=== PATIENT | male | born 1985 | race Two or more races ===

== ENCOUNTER → 2024-11-29 | Outpatient (CLI) | payer BC, SELFPAY ==
--- NOTE | 2024-11-29 16:32 | XR_ITS ---
Examination: Abdomen AP single view Technique: AP portable supine abdomen, single view Exam date and time: November 29, 2024 1658 hours INDICATIONS: Left-sided abdominal pain beginning 2 weeks ago. FINDINGS: Moderate to large amount stool in the right colon No obstruction No free air No renal or ureteral calculi IMPRESSION: Moderate to large amount stool in the right colon
== END | disposition home or self-care (01) ==
PROVIDERS: PCP Internal Medicine; Referring Provider Specialist; Visit Provider Specialist
DX: R10.13 Epigastric pain (principal); R14.0 Abdominal distension (gaseous)
CPT/HCPCS: 74018